=== PATIENT | male | born 1990 | race African-American/Black ===

== ENCOUNTER 2023-07-28 10:31 | Emergency (ER) | payer OTHER ==
[~2023-07-28] VITALS: Ht 185.4 cm; Wt 124.7 kg
[2023-07-28 10:40] VITALS: PULSE 99; RESP 18
[2023-07-28 10:53] VITALS: BP 126/92; TEMP 98.4; O2SAT 96
[2023-07-28] MEDS ORDERED: FAMOTIDINE 20MG TABLET PO SCH (11:30)
[2023-07-28] MEDS ORDERED: PREDNISONE 20MG TABLET PO ONE (11:30)
[2023-07-28] MEDS ORDERED: DIPHENHYDRAMINE 50MG CAPSULE PO ONE (11:30)
[2023-07-28] MEDS ORDERED: P20 MT (12:45)
[2023-07-28] MEDS ORDERED: DIPH25CA83 MT (12:45)
[2023-07-28] MEDS ORDERED: EPIN0.3P3 IM (12:47)
== END 2023-07-28 14:05 | disposition home or self-care (01) ==
LOC: ER 10:31
DX: T50.905A Adverse effect of unspecified drugs, medicaments and biological substances, initial encounter (principal); Y92.9 Unspecified place or not applicable
CPT/HCPCS: 99284; Q0163; J7512